=== PATIENT | male | born 1980 | race African-American/Black ===

== ENCOUNTER 2023-09-04 11:03 | Emergency (ER) | payer MEDICARE, SELFPAY ==
[2023-09-04 11:12] VITALS: BP 145/108
[2023-09-04 11:36] LABS: Hematocrit 41.4 % (39.0-52.0); Hemoglobin 14.6 g/dL (13.0-18.0); Mean Corp Hgb Conc. 35.3 g/dL (33.0-37.0); Mean Platelet Volume 10.5 fL (7.4-10.4); Nucleated Red Blood Cells % 0 % (-); Platelet Count 241 10^3/uL (130-400); Red Blood Cell Count 4.87 10^6/uL (4.70-6.10); Red Cell Dist. Width 11.5 % (11.5-14.5); White Blood Cell Count 5.9 10^3/uL (4.8-10.8)
[2023-09-04 11:49] LABS: ALT (SGPT) 29 U/L (0-50); AST (SGOT) 36 U/L (17-59); Albumin 4.6 g/dl (3.5-5.0); Alkaline Phosphatase 100 U/L (38-126); Blood Urea Nitrogen 30 mg/dl (9-20); Calcium 9.5 mg/dl (8.4-10.2); Carbon Dioxide 24 mmol/L (22-30); Chloride 96 mmol/L (98-107); Glucose 110 mg/dl (70-99); Potassium 3.4 mmol/L (3.5-5.1); Sodium 132 mmol/L (135-145); Total Bilirubin 1.1 mg/dl (0.2-1.3); Total Protein 7.6 g/dl (6.3-8.2); eGFR > 60.00
[2023-09-04 12:11] LABS: NT-proBNP 234 pg/ml; Troponin I 0.048 ng/ml
[2023-09-04 12:18] LABS: Absolute Neutrophils -Man Diff 2.3 10^3/uL (1.4-6.5); Band Neutrophils 0 % (0-3); Lymphocytes 44 % (20-51); Monocytes 4 % (2-9); Segmented Neutrophils 40 % (42-75)
[2023-09-04 12:19] LABS: Normal RBC Morphology Yes; Platelets Checked Yes; Total Cells Counted 100
[2023-09-04 12:22] LABS: Atypical Lymphocytes 12 %
--- NOTE | 2023-09-04 13:21 | ED.GENMED ---
History of Present Illness
General
Chief Complaint: Abdominal Symptoms
Source: patient
Exam Limitations: none
Time Seen by Provider: 09/04/23 13:02
Nursing documentation reviewed up to this point in time: agreed with
Travel History
Have you had any contact with someone who has COVID-19?: No
Do you have any symptoms of coronavirus? Fever > 100 degrees, chills, cough, shortness of breath, sore throat, loss of taste or smell, muscle aches, or headache?: No
History of Present Illness
History of Present Illness:
Patient is a 43-year-old male with past medical history of cardiomyopathy, hypertension CHF AICD brought to the ER by . Patient has had nausea vomiting diarrhea, fatigue body aches since Tuesday unable to take any of his medications. He
feels very fatigued and weak. He does admit that he had some chest pain while here in the waiting room but that has since resolved he felt that it was related to reflux that has been worse since he has been vomiting .
Pt is followed by DR Lake at [facility].
Past History
Past History
ED Past Medical History: CHF, HTN, Other and Other
Patient has exhibited threatening behavior?: No
Social History
Tobacco: Smoker
Alcohol: None
Personal:
Living: with family
Employment: Disabled
Review of Systems
Review of Systems
Allergies reviewed?: Yes
All Other Systems: ROS reviewed and negative except as documented in HPI and ROS
Constitutional: Reports fever and fatigue
EENT: Reports no symptoms
Respiratory: Reports no symptoms; Denies trouble breathing
Cardiac: Reports other (pt had chest pain in the waiting room has since resolved )
ABD/GI: Reports nausea, vomiting and diarrhea; Denies abdominal pain
: Reports no symptoms
Skin: Reports no symptoms
Neurological: Reports no symptoms
Hematologic/Lymphatic: Reports no symptoms
Psychiatric: Reports no symptoms
Phy Exam
General Physical Exam
General Presentation: no apparent distress
General age: appears stated age
General Skin: warm and dry
General Habitus: normal
General Mental: alert
General Hydration: dry mucous membranes
Cardiovascular Exam
Cardiovascular Exam: tachycardia
Pulmonary Exam
Pulmonary Exam: lungs clear and no respiratory distress
Gastrointestinal Exam
Gastrointestinal Exam: non tender and soft
Neurological Exam
Neurological Exam: alert and oriented x3
Joelle Coma Scale
Eye Opening: Spontaneous
Verbal Response: Oriented
Motor Response: Obeys Commands
GCS Total Score: 15
Musculoskeletal Exam
Musculoskeletal Exam: full ROM
Skin Exam
Skin Exam: normal color and warm/dry
Psychiatric Exam
Psychiatric Exam: normal mood/affect
Course
Orders/Labs/Results
Orders:
Orders
09/04/23 11:15
Electrocardiogram (*1) Urgent
Reason for Study: Shortness of Breath
09/04/23 11:16
EKG- Treatment ONCE
09/04/23 11:27
Complete Blood Count/With Diff Urgent
Comprehensive Metabolic Panel Urgent
Manual Differential Urgent
NT-proBNP Urgent
Troponin I Urgent
Influenza A+B Rapid Molecular Urgent
KERWIN Source: Nasal Swab
Specimen Description:
09/04/23 13:27
0.9% Sodium Chloride 1000 ml [Nss] 1,000 ml IV BOLUS
Ondansetron Injectable [Zofran] 4 mg IV NOW STA
09/04/23 15:48
Troponin I Urgent
09/04/23 16:01
Famotidine [Pepcid] 20 mg IV NOW STA
Abnormal Lab Results
09/04/23 09/04/23
11:27 15:48
MPV 10.5 H fL
(7.4-10.4)
Segmented Neutrophils 40 L %
(42-75)
Sodium 132 L mmol/L
(135-145)
Potassium 3.4 L mmol/L
(3.5-5.1)
Chloride 96 L mmol/L
(98-107)
BUN 30 H mg/dl
(9-20)
Glucose 110 H mg/dl
(70-99)
Troponin I 0.048 H* ng/ml 0.043 H* ng/ml
09/04/23 11:27
09/04/23 11:27
Vital Signs
Initial and Last Documented VS:
Initial Vital Signs
Temp Pulse Resp BP Pulse Ox
98.1 F 112 20 145/108 96
09/04/23 11:12 09/04/23 11:12 09/04/23 11:12 09/04/23 11:12 09/04/23 11:12
Last Documented Vital Signs
Temp Pulse Resp BP Pulse Ox
98.1 F 89 21 149/106 99
09/04/23 11:12 09/04/23 14:50 09/04/23 14:50 09/04/23 14:50 09/04/23 14:50
Cyber Systems Engineer consulted with Physician
Cyber Systems Engineer consulted with physician?: Yes
Name of Physician Consulted: yi
MDM/Problems Addressed
Differential Diagnosis Includes:
Not limited to dehydration, viral syndrome, influenza, COVID, acute coronary syndrome
MDM/Problems Addressed:
Patient is a 43-year-old male with past medical history of CHF cardiomyopathy hypertension AICD has had nausea vomiting diarrhea for the past 4 days. Patient was found to have flu A. He has not been able to take any of his medications because of
the symptoms. He presents very fatigued here. He did have an episode of chest pain while in the ER. Troponin is minimally elevated 0.048 he no acute EKG findings. Patient appears clinically dry lungs are clear no complaints of shortness of
breath your BUN is 30. Will give fluids and Zofran.
I spoke with cardiology on-call along w/ admitting hospitalist. after discussion with both providers will hydrate in the ER give Zofran and reevaluate. with pt having n/v and flu positive and trop unremarkable will d/c home if
improvement of s/s.
Patient has no chest pain presently will repeat troponin.
1557: Patient feeling much better tolerating moon bisi here , feels hungry. will give IV pepcid and will recheck troponin and plan for d/c home. Patient with no further chest pain describes reflux history recently over the past several days no
acute changes on EKG.
Chronic conditions affecting care:
Cardiomyopathy AICD, hypertension
*Radiology
Radiology exam reviewed: radiology read reviewed
*Pulse Oximetry
Patient hypoxic: no
*EKG
Interpreted by ED Provider?: Yes
Heart Rate: 104
Rate: tachycardiac
Ischemia: non-specific ST changes
*Critical Care Note
Total Time (30-74mins, 75-104mins- exclusive of procedures): Not Applicable
Data Reviewed
Review of Other/Old Records Reveals: Other (prior visit )
Source: patient and family
ED Attending Note
-
Portions of this chart may have been created with voice recognition software.� Occasional wrong word or��sound alike� substitutions may have occurred due to the inherent limitations of voice recognition software.
Discharge Plan
Departure
Patient Disposition: Home (Routine Discharge)
Date of Disposition: 09/04/23
Time of Disposition: 16:34
Admit to: Telemetry
Admit to doctor: hospitalist
Patient with high blood pressure during this ER visit?: Yes
Condition: Fair
Covid-19: Not Applicable
Discharge Problem:
Influenza A
Instructions: Flu, Adult (DC)
Prescriptions:
New
ondansetron 4 mg tablet,disintegrating
4 mg PO Q8H PRN (Reason: nausea and vomiting) Qty: 10 0RF
No Action
Amlodipine
1 tab PO DAILY
furosemide 40 MG tablet
40 mg PO BID
carvedilol 12.5 MG tablet
12.5 mg PO BID
aspirin 325 MG tablet
325 mg PO DAILY
lisinopril 20 MG tablet
20 mg PO DAILY
Spironolactone
1 tab PO DAILY
oxycodone-acetaminophen 5 MG/325 MG tablet
1 tab PO Q4HPRN PRN (Reason: pain) Qty: 15 0RF
cyclobenzaprine 10 MG tablet
10 mg PO TIDPRN PRN (Reason: muscle spasms) Qty: 30 0RF
hydrocodone-acetaminophen 1 TABLET tablet
1 tab PO Q4HPRN PRN (Reason: severe pain) Qty: 10 0RF
penicillin V potassium 500 MG tablet
500 mg PO Q6 Qty: 27 0RF
Referrals:
Jairo Darling MD [Family Provider] -
Hero Vick MD [Active] -
Activity Restrictions/Additional Instructions:
A prescription for Zofran was sent to your pharmacy take as directed. Clear fluids for the first 24 hours although bland solid foods. Take your medicines as previously prescribed return if any worsening of symptoms including increased nausea
vomiting chest pain reflux or any further concerns. Follow-up with your fine dining server in the next several days for reevaluation
Interventions
Interventions:
*ED COVID-19 Vaccine History Last Done: 09/04/23 11:12
*Nursing Disposition Last Done: 09/04/23 17:26
AR-Brrbxt-Uqgrjikywx Assessment Last Done: 09/04/23 14:02
Discharge Date and Time
Discharge Date/Time: 09/04/23 17:27
[2023-09-04] MEDS: ZOFRAN 4 MG IV (13:54)
[2023-09-04] MEDS: NSS 1000 IV (13:56)
[2023-09-04 14:50] VITALS: BP 149/106
[2023-09-04 16:30] LABS: Troponin I 0.043 ng/ml
[2023-09-04] MEDS: PEPCID 20 MG IV (16:49)
== END 2023-09-04 17:27 | disposition home or self-care (01) ==
LOC: EMR 11:03
PROVIDERS: Nurse Practitioner; EMERGENCY PHYSICIAN Emergency Medicine; FAMILY PHYSICIAN Family Medicine
DX: J10.1 Influenza due to other identified influenza virus with other respiratory manifestations (principal); I11.0 Hypertensive heart disease with heart failure; I50.9 Heart failure, unspecified; F17.200 Nicotine dependence, unspecified, uncomplicated; Z95.810 Presence of automatic (implantable) cardiac defibrillator; I42.9 Cardiomyopathy, unspecified
CPT/HCPCS: 80053; 83880; 84484; 85025; 87502; 87811; 93005; 96374; 96375; 99284

== ENCOUNTER → 2023-11-29 16:09 | Outpatient (REF) | payer MEDICARE, SELFPAY ==
[2023-11-29 18:00] LABS: D-Dimer 0.39 ug/mlFEU (0.00-0.50)
== END ==
LOC: RAD 16:09
PROVIDERS: ATTENDING PHYSICIAN Nurse Practitioner Family
DX: M79.604 Pain in right leg (principal)
CPT/HCPCS: 36415; 85379; 93971

== ENCOUNTER 2024-04-06 12:25 | Emergency (ER) | payer MEDICARE, SELFPAY ==
[2024-04-06] VITALS (7 sets, daily range): BP systolic 119–174; BP diastolic 100–113
--- NOTE | 2024-04-06 13:45 | ED.GENMED ---
History of Present Illness
General
Chief Complaint: Abdominal Pain
Source: patient
Time Seen by Provider: 04/06/24 13:15
History of Present Illness
History of Present Illness:
44-year-old male presents to the emergency room complaining of abdominal pain. Patient began having abdominal pain yesterday. He was seen at an urgent care and referred to the emergency room. Urgent care palpated what they felt was a lump in the
area of discomfort. They were suspicious for a hernia. Patient has not had any previous abdominal surgeries. He is nauseous but he has not vomited. He is not had a bowel movement or passed any gas for 24 hours. Patient does have a significant
history of congestive heart failure. He does have an AICD.
Past History
Past History
ED Past Medical History: CHF, HTN, Other and Other
Patient has exhibited threatening behavior?: No
Social History
Tobacco: Smoker
Alcohol: None
Personal:
Living: with family
Employment: Disabled
Phy Exam
Physical Exam
Physical Exam:
General: Awake, Alert, Oriented X3. No acute distress.
Vitals: unremarkable
Head: Atraumatic
Eyes: Pupils equal, EOMI
Throat: Airway intact, no exudates
Neck: Trachea midline
Lungs: Clear and equal b/l
Heart: Regular rate, no murmurs
Abd: Soft, tender to palpation in the epigastric and central mid abdomen, I do note a palpable lump in the mid abdomen but it is inferior to what appears to be a skin scar. This could be a area of scarring or firm soft tissue versus an incarcerated
hernia. No pulsatile mass
Neuro: Nonfocal
Skin: Warm, dry, no rash
Extremities: pulses equal b/l, no edema
Course
Orders/Labs/Results
Orders:
Orders
04/06/24 13:21
EKG [Electrocardiogram (*1)] Urgent
Reason for Study: Abdominal Pain
EKG- Treatment ONCE
04/06/24 13:42
CT Abd/pel W Iv And Oral Contr Urgent
Comment:
Reason For Exam: mid-abdominal pain
0.9% Sodium Chloride 1000 ml [Nss] 1,000 ml IV BOLUS
HYDROmorphone [Dilaudid] 1 mg IV NOW STA
Iohexol [Omnipaque] See Protocol PO NOW STA
Ondansetron Injectable [Zofran] 4 mg IV NOW STA
04/06/24 13:47
Complete Blood Count/With Diff Urgent
Comprehensive Metabolic Panel Urgent
Lipase Urgent
Urinalysis Reflex To Culture Urgent
Date Specimen was Collected: 04/06/24
Time Specimen was Collected: 13:46
04/06/24 17:23
HYDROmorphone [Dilaudid] 0.5 mg IV NOW STA
04/06/24 18:32
Electrocardiogram (*1) Urgent
Reason for Study: Abdominal Pain
EKG- Treatment ONCE
Famotidine [Pepcid] 20 mg IV NOW STA
Mag Hydrox/Al Hydrox/Simeth [Maalox] 30 ml Phenobarb/Hyoscy/Atropine/Scop [] 10 ml PO NOW
04/06/24 18:43
Mag Hydrox/Al Hydrox/Simeth [Maalox] 30 ml .ROUTE .STK-MED ONE
Phenobarb/Hyoscy/Atropine/Scop [] 10 ml .ROUTE .STK-MED ONE
Abnormal Lab Results
04/06/24
13:47
RBC 4.23 L 10^6/uL
(4.70-6.10)
Hgb 12.8 L g/dL
(13.0-18.0)
Hct 38.1 L %
(39.0-52.0)
Glucose 105 H mg/dl
(70-99)
Calcium 10.3 H mg/dl
(8.4-10.2)
08/23/24 13:47
04/06/24 13:47
Vital Signs
Initial and Last Documented VS:
Initial Vital Signs
Temp Pulse Resp BP Pulse Ox
98 F 93 19 158/100 97
04/06/24 12:32 04/06/24 12:32 04/06/24 12:32 04/06/24 12:32 04/06/24 12:32
Last Documented Vital Signs
Temp Pulse Resp BP Pulse Ox
98 F 79 18 174/103 100
04/06/24 12:32 04/06/24 14:06 04/06/24 14:06 04/06/24 18:00 04/06/24 18:00
MDM/Problems Addressed
Differential Diagnosis Includes:
Incarcerated hernia, pancreatitis, cholecystitis
MDM/Problems Addressed:
CT shows the evidence of a incarcerated abdominal wall hernia. The hernia sac contains fat only. There is inflammatory changes of the fat. Discussed patient's presentation with Dr. Tucker. Recommends pain control for the night and he will
evaluate the patient in the morning. No emergent need for surgery. Patient would prefer to go home. We discussed reasons to return. He agrees to return if he feels worsening pain or develops any skin irritation overlying the area. Recommend
eval with Dr. Ray as an outpatient.
*Radiology
Radiology exam reviewed: radiology read reviewed
*Pulse Oximetry
Patient hypoxic: no
*Critical Care Note
Total Time (30-74mins, 75-104mins- exclusive of procedures): Not Applicable
ED Attending Note
-
Portions of this chart may have been created with voice recognition software.� Occasional wrong word or��sound alike� substitutions may have occurred due to the inherent limitations of voice recognition software.
Discharge Plan
Departure
Patient Disposition: Home (Routine Discharge)
Date of Disposition: 04/06/24
Time of Disposition: 18:33
Admit to: Med/Surg
Patient with high blood pressure during this ER visit?: Yes
Condition: Fair
Discharge Problem:
Strangulated hernia of abdominal wall
Instructions: Abdominal wall hernias
Prescriptions:
No Action
furosemide 40 MG tablet
40 mg PO BID
carvedilol 12.5 MG tablet
12.5 mg PO BID
lisinopril 20 MG tablet
20 mg PO DAILY
spironolactone 25 mg Tablet
25 mg PO DAILY
amlodipine 10 mg Tablet
10 mg PO DAILY
hydralazine 50 mg Tablet
50 mg PO BID
oxycodone 10 mg Tablet
10 mg PO Q6HPRN PRN (Reason: severe pain)
Patient Comments:
04/06/24: filled 04/05/24 for 120 tablets over 30 days
oxycodone [OxyContin] 10 mg Tablet,Oral Only,Ext.Rel.12 Hr
10 mg PO [id number] PRN (Reason: severe pain)
Patient Comments:
filled 04/05/24 for 60 tablets over 30 days
cyclobenzaprine 10 MG tablet
10 mg PO BIDPRN PRN (Reason: muscle spasms)
Referrals:
Jairo Darling MD [Family Provider] -
Solis Tucker MD [Active] -
Activity Restrictions/Additional Instructions:
Call Dr. Tucker's office for an appointment. Return to the ER for uncontrolled pain.
Interventions
Interventions:
*Risk Screen - Suicide Last Done: 04/06/24 12:33
*General Assessment Last Done: 04/06/24 12:33
*Neglect/Abuse Screening Last Done: 04/06/24 12:33
DM-Otjqbv-Vmvqtacvhe Assessment Last Done: 04/06/24 14:00
Discharge Date and Time
Print Language: CZECH
[2024-04-06] MEDS: ZOFRAN 4 MG IV (14:01)
[2024-04-06] MEDS: OMNIPAQUE 50 ML PO (14:01)
[2024-04-06 14:02] LABS: % Basophils 0.2 % (0-2); % Eosinophils 0.8 % (0-6); % Immature Granulocytes 0.3 % (0-0.5); % Lymphocytes 35.8 % (20.5-51.1); % Monocytes 4.8 % (1.7-9.3); % Neutrophils 58.1 % (42.2-75.2); Absolute Eosinophils 0.1 10^3/uL (0-0.7); Absolute Lymphocytes 3.1 10^3/uL (1.2-3.4); Absolute Monocytes 0.4 10^3/uL (0.1-0.6); Hematocrit 38.1 % (39.0-52.0); Hemoglobin 12.8 g/dL (13.0-18.0); Mean Corp Hgb Conc. 33.6 g/dL (33.0-37.0); Mean Corpuscular Hgb 30.3 pg (27.0-31.0); Mean Corpuscular Volume 90.1 fL (80.0-94.0); Mean Platelet Volume 10.3 fL (7.4-10.4); Nucleated Red Blood Cells % 0 % (-); Platelet Count 226 10^3/uL (130-400); Red Blood Cell Count 4.23 10^6/uL (4.70-6.10); Red Cell Dist. Width 12.3 % (11.5-14.5); White Blood Cell Count 8.7 10^3/uL (4.8-10.8)
[2024-04-06] MEDS: DILAUDID 1 MG IV (14:02)
[2024-04-06] MEDS: NSS 1000 IV (14:02)
[2024-04-06 14:16] LABS: ALT (SGPT) 26 U/L (0-50); AST (SGOT) 26 U/L (17-59); Albumin 4.4 g/dl (3.5-5.0); Alkaline Phosphatase 103 U/L (38-126); Blood Urea Nitrogen 15 mg/dl (9-20); Calcium 10.3 mg/dl (8.4-10.2); Carbon Dioxide 26 mmol/L (22-30); Chloride 105 mmol/L (98-107); Glucose 105 mg/dl (70-99); Lipase 94 U/L (23-300); Potassium 4.3 mmol/L (3.5-5.1); Sodium 140 mmol/L (135-145); Total Bilirubin 0.3 mg/dl (0.2-1.3); Total Protein 6.9 g/dl (6.3-8.2); eGFR > 60.00
[2024-04-06] MEDS: DILAUDID 0.5 MG IV (17:42)
[2024-04-06 17:59] LABS: Urine Albumin Negative (Neg - Trace); Urine Bilirubin Negative (Negative); Urine Character Clear (Clear); Urine Color Yellow; Urine Glucose Negative (Negative); Urine Ketone Negative (Negative); Urine Leukocyte Negative (Negative); Urine Nitrite Negative (Negative); Urine Occult Blood Negative (Negative); Urine Urobilinogen Negative (Neg - 1+)
[2024-04-06] MEDS: PEPCID 20 MG IV (18:48)
[2024-04-06] MEDS: MAALOX 40 PO (18:48)
== END 2024-04-06 19:45 | disposition home or self-care (01) ==
LOC: EMR 12:25
PROVIDERS: EMERGENCY PHYSICIAN Emergency Medicine; FAMILY PHYSICIAN Family Medicine
DX: K43.6 Other and unspecified ventral hernia with obstruction, without gangrene (principal); F17.200 Nicotine dependence, unspecified, uncomplicated; I11.0 Hypertensive heart disease with heart failure; I50.9 Heart failure, unspecified
CPT/HCPCS: 99285; 96374; 96375 ×2; 96361; 96376; 74177; 80053; 81003; 83690; 85025; 93005; Q9967

== ENCOUNTER → 2025-03-25 14:45 | Outpatient (REF) | payer MEDICARE, SELFPAY | LOC: HWRCS 14:45 | PROVIDERS: ATTENDING PHYSICIAN Internal Medicine Cardiovascular Disease; FAMILY PHYSICIAN Family Medicine | DX: I50.20 Unspecified systolic (congestive) heart failure (principal) | CPT/HCPCS: 93306 ==